=== PATIENT | female | born 1970 | race Caucasian/White ===

== ENCOUNTER 2020-09-10 08:37 | Emergency (ER) | payer OTHER ==
[~2020-09-10] VITALS: Ht 160 cm; Wt 83.9 kg
[2020-09-10 09:17] LABS: ABSOLUTE LYMPHOCYTES 2.2 thou/uL (0.8-5.3); ABSOLUTE MONOCYTES 0.3 thou/uL (0.0-1.2); ABSOLUTE NEUTROPHILS 2.8 thou/uL (1.6-8.1); BASOPHILS 0.7 %; EOSINOPHILS 0.9 %; HEMATOCRIT 41.1 % (37.0-47.0); HEMOGLOBIN 14.3 gm/dL (12.0-15.0); LYMPHOCYTES 40.8 %; MCHC 34.9 g/dL (28.0-37.0); MCV 88.7 fL (80.0-100.0); MONOCYTES 4.9 %; NUCLEATED RBCS 0 /100WBC; PLATELET COUNT* 227 thou/uL (150-400); POLYS 52.7 %; RBC 4.63 mil/uL (4.20-5.00); RDW-CV 12.9 % (10.5-14.5); WBC 5.3 thou/uL (4.0-11.0)
[2020-09-10 09:26] LABS: CALCIUM 8.8 mg/dL (8.5-10.1); CREATININE 0.8 mg/dL (0.6-1.3); POTASSIUM 3.9 mmol/L (3.5-5.1)
[2020-09-10 09:31] LABS: ALBUMIN 3.6 g/dL (3.4-5.0); TOTAL BILIRUBIN 0.4 mg/dL (<0.1-1.0); TOTAL PROTEIN 7.5 g/dL (6.4-8.2)
[2020-09-10 10:57] VITALS: BP 151/89
--- NOTE | 2020-09-10 15:56 | EKG ---
[place] [address] ELECTROCARDIOGRAM REPORT Name: DUSTY ERAZOJULIOCESAR Regan Room: [facility]#: [id number] Admission: 09/10/20 Attend Phys: Discharge: 09/10/20 Date of : 66 Date of Service: 09/10/20914 Report #: [id number] THIS REPORT FOR: //name// [facility] ED Test Date: 2020-09-10 Test Time: 09:15:21 Pat Name: JULIOCESAR ERAZO Department: Room: Gender: F Utility Worker: WILFRED : 1970 Requested By: Drew Alanis Order Number: [id number] MD: Edwin Sandhu Measurements Intervals [place] Rate: 60 P: 24 W[place]: 145 QRS: 57 QRSD: 102 T: 47 QT: 454 QTc: 454 Interpretive Statements Sinus rhythm Baseline wander in lead(s) V1,V2,V3 No previous ECG available for comparison Electronically Signed On 09-10-2020 15:55:55 CDT by Edwin Sandhu [email or web address] <ELECTRONICALLY SIGNED> By: Edwin Sandhu MD, [facility] 09/10/20 1555 4 4 Edwin Sandhu MD, [facility] /EPI
== END 2020-09-10 10:58 | disposition home or self-care (01) ==
LOC: M.ERS 08:37
PROVIDERS: Family Medicine
DX: R42 Dizziness and giddiness (principal)